=== PATIENT | male | born 1985 | race African-American/Black ===

== ENCOUNTER 2016-05-22 19:32 | Inpatient (IN) | payer SELFPAY ==
[2016-05-22] MEDS ORDERED: Ondansetron 4 MG/2 ML SDV IVPUSH ONE (22:01)
[2016-05-22] MEDS ORDERED: HYDROmorphone 1 MG/ML Syringe IVPUSH ONE (22:01)
--- NOTE | 2016-05-22 22:10 | EDM.PDOC ---
ED HPI LOWER BACK PAIN/INJURY - General Chief Complaint: Back Pain or Injury Stated Complaint: PT HAS LOWER BACK PAIN Time Seen by Provider: 05/22/16 22:00 Source of Information: Reports: Patient, RN - History of Present Illness INITIAL COMMENTS - FREE TEXT/NARRATIVE: He presents stating that for several days he's had pain "" he has had trouble with defecation isn't stating he cannot have a bowel movement. He states he cannot urinate. He states he feels dehydrated. - Related Data Allergies/ADRs: Allergies Allergy/AdvReac Type Severity Reaction Status Date / Time cat dander Allergy Hives Verified 05/22/16 20:01 Home Meds: Home Meds . [No Known Home Meds] 12/08/14 [History] . [No Known Home Meds] 05/15/15 [History] Past Medical History - Past Health History Medical/Surgical History: Denies Medical/Surgical History HEENT History: Reports: None Other Cardiovascular History: states had heart murmur in the past Respiratory History: Reports: None Gastrointestinal History: Reports: Gastritis, Hemorrhoids Genitourinary History: Reports: None Musculoskeletal History: Reports: None Neurological History: Reports: None Psychiatric History: Reports: None Endocrine/Metabolic History: Reports: None. Denies: Diabetes, type I, Diabetes , type II Hematologic History: Reports: None Immunologic History: Reports: None Oncologic (Cancer) History: Reports: None Dermatologic History: Reports: None - Infectious Disease History Infectious Disease History: Reports: None - Past Surgical History Cardiovascular Surgical History: Reports: None Respiratory Surgical History: Reports: None GI Surgical History: Reports: Other (see below) Other GI Surgeries/Procedures: biopsy from gastritis Social & Family History - Family History Family Medical History: Noncontributory Cardiac: Reports: Hypertension, [place] Neurological: Reports: CVA Endocrine/Metabolic: Reports: Diabetes, type II - Tobacco Use Smoking Status *Q: Current Some Day Smoker Years of Tobacco use: 1 Packs/Tins Daily: 5 Second Hand Smoke Exposure: Yes - Alcohol Use Days Per Week of Alcohol Use: 2 Alcohol Use Comment: He states he's had a lot of alcohol in the last 24 hours - Recreational Drug Use Recreational Drug Use: No Drug Use in Last 12 Months: Yes Recreational Drug Type: Reports: Marijuana/Hashish (weekends only, none in past 24 hours) Recreational Drug Use Frequency: Socially Recreational Drug Last Use: 2 days ago 12/19/14 ED ROS GENERAL - Review of Systems Review Of Systems: See Below Constitutional: Denies: fever, chills Respiratory: Denies: Wheezing, Cough, Sputum GI/Abdominal: Denies: Abdominal pain, Nausea, Vomiting ED EXAM,LOWER BACK PAIN/INJURY - Physical Exam Exam: See Below General Appearance: alert, moderate distress, other (He is sitting in a knee- chest position) Respiratory/Chest: no respiratory distress, no accessory muscle use GI/Abdominal: soft, non tender (Male) Exam: Other (He is sitting in the knee-chest position I palpated in the area of the coccyx he had exquisite pain) Comments: He has marked tenderness just posterior to the anal area Course - Vital Signs Last Recorded V/S: Last Vital Signs Temp 97.8 F 05/23/16 01:21 Pulse 82 05/23/16 01:21 Resp 18 05/23/16 01:21 BP 126/75 05/23/16 01:21 Pulse Ox 100 05/23/16 01:21 - Orders/Labs/Meds Orders: Active Orders 24 hr Category Date Time Status Patient Status [ADT] Routine ADT 05/23/16 02:19 Ordered Communication Order [RC] PER UNIT ROUTINE Care 05/22/16 22:02 Active Oxygen Therapy [RC] PRN Care 05/23/16 02:19 Ordered VTE/DVT Education [RC] PER UNIT ROUTINE Care 05/23/16 02:19 Ordered Vital Signs [RC] Q4H Care 05/23/16 02:19 Ordered Regular Diet [DIET] Diet 05/23/16 Breakfast Ordered Abdomen 1V Flat [CR] Stat Exams 05/22/16 22:02 Taken Pelvis w wo Cont [CT] Stat Exams 05/22/16 23:31 Taken BASIC METABOLIC PANEL,BMP [CHEM] AM Lab 05/24/16 05:11 Ordered BASIC METABOLIC PANEL,BMP [CHEM] AM Lab 05/25/16 05:11 Ordered CBC WITH AUTO DIFF [HEME] AM Lab 05/24/16 05:11 Ordered CBC WITH AUTO DIFF [HEME] AM Lab 05/25/16 05:11 Ordered CHLAMYDIA TRACHOMATIS/GC AMPLF Stat Lab 05/23/16 01:10 Received CULTURE BLOOD [BC] Stat Lab 05/23/16 01:35 Received CULTURE BLOOD [BC] Stat Lab 05/23/16 01:35 Results CULTURE URINE [RM] Stat Lab 05/23/16 01:24 Ordered Acetaminophen [Tylenol] Med 05/23/16 02:18 Ordered 650 mg PO Q4H PRN Bisacodyl [Dulcolax] Med 05/23/16 02:18 Ordered 5 mg PO DAILY PRN Doxycycline [Vibramycin] 100 mg Med 05/23/16 01:15 Active Sodium Chloride 0.9% [Normal Saline] 100 ml IV Q12H HYDROmorphone [Dilaudid] Med 05/22/16 23:32 Active 1 mg IVPUSH Q2H PRN HYDROmorphone [Dilaudid] Med 05/23/16 02:18 Ordered 1 mg IVPUSH Q2H PRN Ondansetron [Zofran] Med 05/23/16 02:18 Ordered 4 mg IVPUSH Q4H PRN Sodium Chloride 0.9% [Normal Saline] 1,000 ml Med 05/22/16 22:15 Active IV STAT Temazepam [Restoril] Med 05/23/16 02:18 Ordered 15 mg PO BEDTIME PRN cefTRIAXone [Rocephin] Med 05/23/16 01:15 Active 1,000 mg IVPUSH Q24H Blood Culture x2 Reflex Set [OM.PC] Stat Oth 05/23/16 00:51 Ordered Resuscitation Status Routine Resus Stat 05/23/16 02:18 Ordered Medication Orders Acetaminophen (Tylenol) 650 mg PO Q4H PRN PRN Reason: Pain (Mild 1-3)/fever Bisacodyl (Dulcolax) 5 mg PO DAILY PRN PRN Reason: Constipation Ceftriaxone Sodium (Rocephin) 1,000 mg IVPUSH Q24H LINDA Last Admin: 05/23/16 01:54 Dose: 1,000 mg Hydromorphone HCl (Dilaudid) 1 mg IVPUSH Q2H PRN PRN Reason: Pain Last Admin: 05/23/16 00:53 Dose: 1 mg Hydromorphone HCl (Dilaudid) 1 mg IVPUSH Q2H PRN PRN Reason: Pain (severe 7-10) Sodium Chloride (Normal Saline) 1,000 mls @ 250 mls/hr IV STAT LINDA Last Admin: 05/22/16 23:07 Dose: 250 mls/hr Doxycycline Hyclate 100 mg/ (Sodium Chloride) 100 mls @ 100 mls/hr IV Q12H LINDA Last Admin: 05/23/16 01:55 Dose: 100 mls/hr Ondansetron HCl (Zofran) 4 mg IVPUSH Q4H PRN PRN Reason: Nausea Temazepam (Restoril) 15 mg PO BEDTIME PRN PRN Reason: Sleep Labs: Laboratory Tests 05/22/16 05/22/16 05/23/16 Range/Units 22:26 22:26 01:10 WBC 11.66 H (4.0-11.0) K/uL RBC 4.56 (4.50-5.90) M/uL Hgb 12.9 L (13.0-17.0) g/dL Hct 38.6 (38.0-50.0) % MCV 84.6 (80.0-98.0) fL MCH 28.3 (27.0-32.0) pg MCHC 33.4 (31.0-37.0) g/dL RDW Std Deviation 44.8 (28.0-62.0) fl RDW Coeff of Meredith 14 (11.0-15.0) % Plt Count 219 (150-400) K/uL MPV 10.10 (7.40-12.00) fL Neut % (Auto) 75.6 (48.0-80.0) % Lymph % (Auto) 17.2 (16.0-40.0) % Stone % (Auto) 5.9 (0.0-15.0) % Eos % (Auto) 0.9 (0.0-7.0) % Baso % (Auto) 0.4 (0.0-1.5) % Neut # (Auto) 8.8 H (1.4-5.7) K/uL Lymph # (Auto) 2.0 (0.6-2.4) K/uL Stone # (Auto) 0.7 (0.0-0.8) K/uL Eos # (Auto) 0.1 (0.0-0.7) K/uL Baso # (Auto) 0.1 (0.0-0.1) K/uL Nucleated RBC % 0.0 /100WBC Nucleated RBCs # 0 K/uL Sodium 138 (136-146) mmol/L Potassium 4.1 (3.5-5.1) mmol/L Chloride 108 (98-110) mmol/L Carbon Dioxide 21 (21-31) mmol/L BUN 13 (6.0-23.0) mg/dL Creatinine 0.9 (0.6-1.5) mg/dL Est Cr Clr Drug Dosing TNP Estimated GFR (MDRD) > 60.0 ml/min Glucose 99 (60-110) mg/dL Calcium 9.1 (8.8-10.8) mg/dL Total Bilirubin 0.8 (0.1-1.5) mg/dL AST 15 (5-40) IU/L ALT 15 (8-54) IU/L Alkaline Phosphatase 51 (40-150) Total Protein 7.1 (6.0-8.0) g/dL Albumin 4.2 (3.5-5.0) g/dL Globulin 2.9 (2.0-3.5) g/dL Albumin/Globulin Ratio 1.5 (1.3-2.8) Amylase 62 (10-90) U/L Lipase 8 (7-80) U/L Urine Color YELLOW Urine Appearance CLEAR Urine pH 6.0 (5.0-8.0) Ur Specific [place] 1.020 (1.001-1.035) Urine Protein NEGATIVE (NEGATIVE) mg/dL Urine Glucose (UA) NEGATIVE (NEGATIVE) mg/dL Urine Ketones NEGATIVE (NEGATIVE) mg/dL Urine Occult Blood NEGATIVE (NEGATIVE) Urine Nitrite NEGATIVE (NEGATIVE) Urine Bilirubin NEGATIVE (NEGATIVE) Urine Urobilinogen 1.0 (<2.0) EU/dL Ur Leukocyte Esterase TRACE (NEGATIVE) Urine RBC 0-1 (0-2/HPF) Urine WBC 4-6 (0-5/HPF) Ur Epithelial Cells RARE (NONE-FEW) Urine Bacteria RARE (NEGATIVE) Urine Mucus LIGHT (NONE-MOD) Ethyl Alcohol < 10.0 mg/dL Meds: Medications Generic Name Dose Route Start Last Admin Trade Name Freq PRN Reason Stop Dose Admin Acetaminophen 650 mg 05/23/16 02:18 Tylenol PO Q4H PRN Pain (Mild 1-3)/fever Bisacodyl 5 mg 05/23/16 02:18 Dulcolax PO DAILY PRN Constipation Ceftriaxone Sodium 1,000 mg 05/23/16 01:15 05/23/16 01:54 Rocephin IVPUSH 1,000 mg Q24H LINDA Administration Hydromorphone HCl 1 mg 05/22/16 23:32 05/23/16 00:53 Dilaudid IVPUSH 1 mg Q2H PRN Administration Pain Hydromorphone HCl 1 mg 05/23/16 02:18 Dilaudid IVPUSH Q2H PRN Pain (severe 7-10) Sodium Chloride 1,000 mls @ 250 mls/hr 05/22/16 22:15 05/22/16 23:07 Normal Saline IV 250 mls/hr STAT LINDA Administration Doxycycline Hyclate 100 mg/ 100 mls @ 100 mls/hr 05/23/16 01:15 05/23/16 01: 55 Sodium Chloride IV 100 mls/hr Q12H LINDA Administration Ondansetron HCl 4 mg 05/23/16 02:18 Zofran IVPUSH Q4H PRN Nausea Temazepam 15 mg 05/23/16 02:18 Restoril PO BEDTIME PRN Sleep Discontinued Medications Generic Name Dose Route Start Last Admin Trade Name Freq PRN Reason Stop Dose Admin Hydromorphone HCl 1 mg 05/22/16 22:01 05/22/16 23:08 Dilaudid IVPUSH 05/22/16 22:02 1 mg ONETIME ONE Administration Piperacillin Sod/Tazobactam 50 mls @ 100 mls/hr 05/22/16 23:51 05/23/16 00:27 Sod 3.375 gm/ Sodium Chloride IV 05/23/16 00:20 100 mls/hr ONETIME ONE Administration Iopamidol 100 ml 05/23/16 00:18 05/23/16 00:18 Isovue-370 (76%) IVPUSH 05/23/16 00:19 100 ml ONETIME STA Administration Ondansetron HCl 4 mg 05/22/16 22:01 05/22/16 23:06 Zofran IVPUSH 05/22/16 22:02 4 mg ONETIME ONE Administration - Re-Assessments/Exams Free Text/Narrative Re-Assessment/Exam: 05/23/16 00:52 shaking chills noted. Betty Ceja MD Free Text/Narrative Re-Assessment/Exam: 05/23/16 02:12 patient unable to void. hopkins place with resultant 1600 ml urine out. Free Text/Narrative Re-Assessment/Exam: 05/23/16 02:23 Is resting peacefully now Departure - Departure Time of Disposition: 02:23 Disposition: Admitted As Inpatient 65 Clinical Impression: Acute prostatitis, Urinary retention Referrals: PCP,None [Primary Care Provider] - Forms: ED Department Discharge Additional Instructions: I spoke with Dr. Coles, hospitalist, who agrees to accept as an admission. Patient has been advised. - My Orders Last 24 Hours: My Active Orders 05/22/16 22:02 Communication Order [RC] PER UNIT ROUTINE Abdomen 1V Flat [CR] Stat 05/22/16 22:15 Sodium Chloride 0.9% [Normal Saline] 1,000 ml IV STAT 05/22/16 23:31 Pelvis w wo Cont [CT] Stat 05/22/16 23:32 HYDROmorphone [Dilaudid] 1 mg IVPUSH Q2H PRN 05/23/16 00:51 Blood Culture x2 Reflex Set [OM.PC] Stat 05/23/16 01:10 CHLAMYDIA TRACHOMATIS/GC AMPLF Stat 05/23/16 01:15 Doxycycline [Vibramycin] 100 mg Sodium Chloride 0.9% [Normal Saline] 100 ml IV Q12H cefTRIAXone [Rocephin] 1,000 mg IVPUSH Q24H 05/23/16 01:24 CULTURE URINE [RM] Stat 05/23/16 01:35 CULTURE BLOOD [BC] Stat CULTURE BLOOD [BC] Stat 05/23/16 02:18 Acetaminophen [Tylenol] 650 mg PO Q4H PRN Bisacodyl [Dulcolax] 5 mg PO DAILY PRN HYDROmorphone [Dilaudid] 1 mg IVPUSH Q2H PRN Ondansetron [Zofran] 4 mg IVPUSH Q4H PRN Temazepam [Restoril] 15 mg PO BEDTIME PRN Resuscitation Status Routine 05/23/16 02:19 Patient Status [ADT] Routine Oxygen Therapy [RC] PRN VTE/DVT Education [RC] PER UNIT ROUTINE Vital Signs [RC] Q4H 05/23/16 Breakfast Regular Diet [DIET] 05/24/16 05:11 BASIC METABOLIC PANEL,BMP [CHEM] AM CBC WITH AUTO DIFF [HEME] AM 05/25/16 05:11 BASIC METABOLIC PANEL,BMP [CHEM] AM CBC WITH AUTO DIFF [HEME] AM - Assessment/Plan Last 24 Hours: My Active Orders 05/22/16 22:02 Communication Order [RC] PER UNIT ROUTINE Abdomen 1V Flat [CR] Stat 05/22/16 22:15 Sodium Chloride 0.9% [Normal Saline] 1,000 ml IV STAT 05/22/16 23:31 Pelvis w wo Cont [CT] Stat 05/22/16 23:32 HYDROmorphone [Dilaudid] 1 mg IVPUSH Q2H PRN 05/23/16 00:51 Blood Culture x2 Reflex Set [OM.PC] Stat 05/23/16 01:10 CHLAMYDIA TRACHOMATIS/GC AMPLF Stat 05/23/16 01:15 Doxycycline [Vibramycin] 100 mg Sodium Chloride 0.9% [Normal Saline] 100 ml IV Q12H cefTRIAXone [Rocephin] 1,000 mg IVPUSH Q24H 05/23/16 01:24 CULTURE URINE [RM] Stat 05/23/16 01:35 CULTURE BLOOD [BC] Stat CULTURE BLOOD [BC] Stat 05/23/16 02:18 Acetaminophen [Tylenol] 650 mg PO Q4H PRN Bisacodyl [Dulcolax] 5 mg PO DAILY PRN HYDROmorphone [Dilaudid] 1 mg IVPUSH Q2H PRN Ondansetron [Zofran] 4 mg IVPUSH Q4H PRN Temazepam [Restoril] 15 mg PO BEDTIME PRN Resuscitation Status Routine 05/23/16 02:19 Patient Status [ADT] Routine Oxygen Therapy [RC] PRN VTE/DVT Education [RC] PER UNIT ROUTINE Vital Signs [RC] Q4H 05/23/16 Breakfast Regular Diet [DIET] 05/24/16 05:11 BASIC METABOLIC PANEL,BMP [CHEM] AM CBC WITH AUTO DIFF [HEME] AM 05/25/16 05:11 BASIC METABOLIC PANEL,BMP [CHEM] AM CBC WITH AUTO DIFF [HEME] AM
[2016-05-22] MEDS ORDERED: Sodium Chloride 0.9% 1,000 ML IV SCH (22:15)
[2016-05-22 23:05] LABS: CHLORIDE,CL 108 mmol/L (98-110); SODIUM,NA 138 mmol/L (136-146)
[2016-05-22] MEDS ORDERED: Piperacillin/Tazobactam 3.375 GM in Sodium Chloride 0.9% 50 ML IV ONE (23:51)
[2016-05-23] MEDS ORDERED: Iopamidol 755 Mg/ML 100 ML Bottle IVPUSH STA (00:18)
[2016-05-23] MEDS: HYDROmorphone 1 MG/ML Syringe IVPUSH PRN ×3 (00:53→08:08)
[2016-05-23] MEDS ORDERED: cefTRIAXone 1,000 MG VIAL IVPUSH SCH (01:15)
[2016-05-23] MEDS ORDERED: Doxycycline 100 MG in Sodium Chloride 0.9% 100 ML IV SCH ×2 (01:15→14:00)
[2016-05-23] MEDS ORDERED: Temazepam 15 MG Cap PO PRN (02:18)
[2016-05-23] MEDS ORDERED: HYDROmorphone 2 MG/ML Syringe IVPUSH PRN (02:18)
[2016-05-23] MEDS ORDERED: Ondansetron 4 MG/2 ML SDV IVPUSH PRN (02:18)
[2016-05-23] MEDS ORDERED: Acetaminophen 325 MG Tab PO PRN (02:18)
[2016-05-23] MEDS ORDERED: Sodium Chloride 0.9% 1,000 ML IV ONE (04:12)
[2016-05-23] MEDS: Sodium Chloride 0.9% 1,000 ML IV SCH ×4 (05:28→22:30)
[2016-05-23] MEDS: Bisacodyl 5 MG Tab PO PRN (07:58)
--- NOTE | 2016-05-23 08:24 | PCM.HP ---
H&P History of Present Illness - General Date of Service: 05/23/16 Admit Problem/Dx: Admission Diagnosis/Problem Admission Diagnosis/Problem Prostatitis Source of Information: Patient History Limitations: Reports: No limitations - History of Present Illness Initial Comments - Free Text/Narative: This 30 year old male with pmh of rectal bleeding with normal EGD and colonoscopy in 2014, heart murmur as child presented to the ED with 3 days of pain to his rectum and tailbone with the inability to void. He reports he had a bowel movement on Thursday which caused pain to his rectum, a sharp shooting pain which then ceased. He went to work and throughout the day the pain returned and progressively worsened. He denies any black or bloody BMS. He reports he did have a BM on Thursday but was unable to void because "it hurt too much". He denies any abdominal pain. He reports he has not had sexual intercourse or contact in 2 years. He denies any penile discharge or testicular pain. The pain continues and is located at his tailbone and rectum. No family history of testicular ca that he is aware of. He reports increased alcohol and marijuana use in the last 48 hour because the pain was so bad, this was his attempt to decrease the pain. In the ED WBC elevated at 11,660 Otherwise labs WNL. BC obtained. UA negative, UC obtained. He was treated with Rocephin and Doxycycline. CT of abd/pelvis revealed Inhomogenous prostate containing an ill define area of decreased attenuation in paulette left lobe, correlate for atypical prostatitis no significant periprostatic stranding noted. tailbone area Pain Score (Numeric/FACES): 7 - Related Data Allergies/Adverse Reactions: Allergies Allergy/AdvReac Type Severity Reaction Status Date / Time cat dander Allergy Hives Verified 05/22/16 20:01 Home Medications: Home Meds . [No Known Home Meds] 12/08/14 [History] . [No Known Home Meds] 05/15/15 [History] Past Medical History - Past Health History Medical/Surgical History: Denies Medical/Surgical History HEENT History: Reports: None Cardiovascular History: Reports: Other (see below) Other Cardiovascular History: Heart murmur as a child Respiratory History: Reports: None. Denies: Asthma Gastrointestinal History: Reports: Gastritis, Hemorrhoids Genitourinary History: Reports: None. Denies: Chronic renal insuffiency Musculoskeletal History: Reports: None Neurological History: Reports: None. Denies: CVA, TIA Psychiatric History: Reports: None. Denies: Anxiety, Depression Endocrine/Metabolic History: Reports: None. Denies: Diabetes, type II, Hypothyroidism, Obesity/BMI 30+ Hematologic History: Reports: None Immunologic History: Reports: None Oncologic (Cancer) History: Reports: None Dermatologic History: Reports: None - Infectious Disease History Infectious Disease History: Reports: None - Past Surgical History Cardiovascular Surgical History: Reports: None Respiratory Surgical History: Reports: None GI Surgical History: Reports: Other (see below) Other GI Surgeries/Procedures: biopsy from gastritis Social & Family History - Family History Family Medical History: Noncontributory Cardiac: Reports: Hypertension, [place] Neurological: Reports: CVA Endocrine/Metabolic: Reports: Diabetes, type II - Tobacco Use Smoking Status *Q: Current Some Day Smoker Years of Tobacco use: 1 Packs/Tins Daily: 5 Second Hand Smoke Exposure: Yes - Alcohol Use Days Per Week of Alcohol Use: 2 - Recreational Drug Use Recreational Drug Use: No Drug Use in Last 12 Months: Yes Recreational Drug Type: Reports: Marijuana/Hashish (weekends only, none in past 24 hours) Recreational Drug Use Frequency: Socially Recreational Drug Last Use: 2 days ago 12/19/14 - Sexual History Sexual History: Reports: Sexually active, Other (see below) (No sexual contact in over 2 years.) - Living Situation & Occupation Living situation: Reports: single Occupation: employed H&P Review of Systems - Review of Systems: Review Of Systems: See Below General: Reports: malaise. Denies: fever, chills HEENT: Reports: no symptoms Pulmonary: Reports: No Symptoms. Denies: Shortness of Breath, Wheezing, Cough Cardiovascular: Reports: no symptoms. Denies: chest pain, palpitations, edema Gastrointestinal: Reports: Other (rectal pain, noted in tailbone). Denies: Black stool, Bloody stool, Diarrhea, Nausea, Vomiting Genitourinary: Reports: retention. Denies: hematuria, penile discharge, flank pain Musculoskeletal: Reports: no symptoms Skin: Reports: no symptoms Psychiatric: Reports: no symptoms Neurological: Reports: No Symptoms Hematologic/Lymphatic: Reports: no symptoms Immunologic: Reports: no symptoms Exam - Exam Exam: See Below - Vital Signs Vital Signs: Last Vital Signs Temp 97.4 F 05/23/16 03:00 Pulse 62 05/23/16 03:00 Resp 18 05/23/16 03:00 BP 80/40 L 05/23/16 03:00 Pulse Ox 97 05/23/16 03:21 Weight: 61.4 kg - Exam Quality Assessment: urinary catheter, DVT prophylaxis. No: supplemental oxygen General: alert, oriented, cooperative HEENT: Conjunctiva clear, EACs clear, Mucosa moist & pink, Nares patent, Posterior pharynx clear Lungs: Clear to auscultation, Normal respiratory effort Cardiovascular: regular rate, regular rhythm, normal S1, normal S2. No: systolic murmur, diastolic murmur Abdomen: normal bowel sounds, soft. No: organomegaly, guarding, rebound, tenderness, splenomegaly (Male) Exam: Normal inspection, Urethral discharge (some white discharge noted post hopkins placement. ). No: Normal prostate (slight firmness felt to L) , Penile lesions, Rash, Scrotal swelling, Scrotum tenderness (L), Scrotum tenderness (R), Testicular mass, Testicular tenderness (L), Testicular tenderness (R) Rectal (Males) Exam: Normal rectal tone, Hemorrhoids (one external hemrrhoid noted, no bleeding ), Other (rectal pain noted, no abscess noted, no drainage. ) . No: Black stool, Bloody Stool, Fecal impaction, Mass, Rectal fissure Back Exam: normal inspection, full range of motion, NT Extremities: normal inspection, normal pulses Neuro Extensive - Mental Status: alert, oriented x3, normal mood/affect, normal cognition Neuro Extensive - Motor, Sensory, Reflexes: CN II-XII intact, normal gait, normal reflexes Psychiatric: alert, normal affect, normal mood - Patient Data Result Diagrams: 05/22/16 22:26 05/22/16 22:26 EKG INTERPRETATION Rhythm: NSR Rate (beats/min): 55 [place]: normal P-wave: present QRS: normal ST-T: elevated (early repolarization) *Q Meaningful Use (ADM) - VTE *Q VTE Criteria *Q: - VTE Risk Assess *Q Each Risk Factor Represents 1 Point: None Total Score 1 Point Risk Factors: 0 Each Risk Factor Represents 2 Points: None Total Score 2 Point Risk Factors: 0 Each Risk Factor Represents 3 Points: None Total Score 3 Point Risk Factors: 0 Each Risk Factor Represents 5 Points: None Total Score 5 Point Risk Factors: 0 Venous Thromboembolism Risk Factor Score *Q: 0 - Stroke *Q Stroke Criteria *Q: - AMI *Q AMI Criteria *Q: - Problem List (1) Acute prostatitis SNOMED Code(s): 81347538, 79850396 ICD Code: N41.0 - ACUTE PROSTATITIS Status: Acute Current Visit: Yes (2) Urinary retention SNOMED Code(s): 431660790 ICD Code: R33.9 - RETENTION OF URINE, UNSPECIFIED Status: Acute Current Visit: Yes (3) History of rectal bleeding SNOMED Code(s): 751274626 ICD Code: Z87.19 - PERSONAL HISTORY OF OTHER DISEASES OF THE DIGESTIVE SYSTEM Status: Chronic Current Visit: Yes Problem List Initiated/Reviewed/Updated: Yes Orders Last 24hrs: Active Orders 24 hr Category Date Time Status Telemetry Monitoring [Cardiac Monitoring] [RC] . Care 05/23/16 06:25 Active DIRECTED Acetaminophen/HYDROcodone [[place] 325-5 MG] Med 05/23/16 08:21 Ordered 1 - 2 tab PO Q4H PRN Morphine Med 05/23/16 08:23 Ordered 2 mg IVPUSH Q2H PRN Sodium Chloride 0.9% [Normal Saline] 1,000 ml Med 05/23/16 05:30 Active IV ASDIRECTED Medication Orders Acetaminophen (Tylenol) 650 mg PO Q4H PRN PRN Reason: Pain (Mild 1-3)/fever Hydrocodone Bitart/Acetaminophen ([place] 325-5 Mg) 1 - 2 tab PO Q4H PRN PRN Reason: Pain Bisacodyl (Dulcolax) 5 mg PO DAILY PRN PRN Reason: Constipation Last Admin: 05/23/16 07:58 Dose: 5 mg Ceftriaxone Sodium (Rocephin) 1,000 mg IVPUSH Q24H [facility] Last Admin: 05/23/16 01:54 Dose: 1,000 mg Doxycycline Hyclate 100 mg/ (Sodium Chloride) 100 mls @ 100 mls/hr IV Q12H [facility] Last Admin: 05/23/16 01:55 Dose: 100 mls/hr Sodium Chloride (Normal Saline) 1,000 mls @ 200 mls/hr IV ASDIRECTED [facility] Last Admin: 05/23/16 05:28 Dose: 100 mls/hr Morphine Sulfate (Morphine) 2 mg IVPUSH Q2H PRN PRN Reason: Pain Ondansetron HCl (Zofran) 4 mg IVPUSH Q4H PRN PRN Reason: Nausea Temazepam (Restoril) 15 mg PO BEDTIME PRN PRN Reason: Sleep Assessment/Plan Comment:: This 30 year old male admitted with urinary retention, rectal pain and acute prostatitis 1. Acute prostatitis: Will change antibiotic coverage to Levaquin IV. Consult Dr. Hodges, I appreciate his assistance with this patient. Will obtain PSA. Hopkins in place for retention. May consider Flomax will speak with Dr. Hodges. 2. Hypotension: Likely related to pain medication. Changed medication to [place] and Morphine. Discontinued Dilaudid. VTE: SCDs Dispo: 2-3 days pending improvement.
[2016-05-23] MEDS: Morphine 2 MG/ML Syringe IVPUSH PRN ×5 (09:30→21:58)
[2016-05-23] MEDS: Acetaminophen/HYDROcodone 325-5 MG Tab PO PRN ×4 (10:11→22:30)
[2016-05-23] MEDS: Levofloxacin/Dextrose 5%-Water 500 MG in Premix Bag 1 BAG IV SCH (12:47)
[2016-05-23] MEDS ORDERED: Morphine 2 MG/ML Syringe IVPUSH ONE (15:00)
[2016-05-23] MEDS: Tamsulosin 0.4 MG Cap.ER PO SCH ×2 (15:19→21:15)
--- NOTE | 2016-05-23 16:13 | CR ---
EXAM DATE: 05/23/16 PATIENT'S AGE: 30 Patient: HARSHA GELLER Facility: [place], [place] Site . Site : 1985 Study: XRay Abdomen [id number]/[id number] 10:40:19 PM Ordering Physician: Marcial Chavez Final Report: INDICATION: CONSTIPATION, LOWER BACK PAIN TECHNIQUE: Abdominal radiograph 2 views COMPARISON: None FINDINGS: Bowel: The bowel gas pattern is normal without evidence of bowel obstruction. Soft tissues: No evidence of pneumoperitoneum present. No sign of soft tissue mass seen. No suspicious calcifications noted. Bones: Unremarkable for age. IMPRESSIONS: Unremarkable radiographs of the abdomen. Dictated by: Favio Mccoy MD @ 05/22/2016 22:40:53 (Electronic Signature) Report Signed by Proxy and Original Signed Document filed in the Medical Record. MTDD
--- NOTE | 2016-05-23 16:22 | CT ---
EXAM DATE: 05/23/16 PATIENT'S AGE: 30 Patient: HARSHA GELLER Facility: [place], [place] Site . Site : 1985 Study: CT Pelvis W/ and W/O Cont [id number] 12:19:18 AM Ordering Physician: Marcial Chavez Final Report: Indication: Perirectal pain Technique: Pelvic CT without and with intravenous contrast. Comparison: A CT abdomen and pelvis dated 12/11/2014 Findings: No perirectal collection is seen. No discrete abnormalities are seen in the visualized portions of the gastrointestinal tract. Portions of a normal caliber appendix are seen without periappendiceal changes. The prostate is heterogeneous , demonstrating an ill-defined asymmetrical area of decreased attenuation in the left lobe. No significant periprosthetic stranding is seen. The seminal vesicles are symmetrical. No discrete bladder abnormalities seen. No abnormally enlarged pelvic lymph nodes are seen. There is no significant pelvic free fluid or free air. No suspicious or acute osseous abnormalities are seen. There is trace stranding adjacent to the coccyx, nonspecific. Impression: No perirectal collection. No significant abnormality seen in the visualized portions of the pelvic gastrointestinal tract. Inhomogeneous prostate containing an ill-defined area of decreased attenuation in the left lobe. Recommend further urological evaluation and correlate for atypical prostatitis, although no significant periprosthetic stranding is seen. Dictated by Germán Lorenzo MD @ 05/23/2016 12:31:44 AM Dictated by: Germán Lorenzo MD @ 05/23/2016 00:31:52 (Electronic Signature) Report Signed by Proxy and Original Signed Document filed in the Medical Record. [facility]
--- NOTE | 2016-05-23 19:12 | PCM.SN ---
[id number] examined the patient and looked at his CT study. He feels that this is most likely not a prostatitis as there is no UTI, patient is not tender over prostate, and white count is not elevated like it would be in a prostatitis. Patient is more tender near the coccyx. He feels that this may be a forming pilonidal cyst. He recommends keeping the patient on Levaquin. He will see the patient again tomorrow and if the patient is doing well he can be discharged with a prescription of levaquin for 14 days and follow-up. <Juan Luis Coles O - Last Filed: 05/24/16 08:26> - Free Text/Narrative Note: I was present with the resident during the history and exam. I discussed the case with the resident and agree with the findings and plan as documented in the resident's note
[2016-05-24] MEDS ORDERED: cefTRIAXone 1 GM in Premix Bag 1 BAG IV SCH (01:00)
[2016-05-24] MEDS: Sodium Chloride 0.9% 1,000 ML IV SCH ×3 (03:27→15:11)
[2016-05-24] MEDS: Morphine 2 MG/ML Syringe IVPUSH PRN ×2 (03:35→10:29)
[2016-05-24 06:35] LABS: CHLORIDE,CL 110 mmol/L (98-110); SODIUM,NA 138 mmol/L (136-146)
[2016-05-24] MEDS: Acetaminophen/HYDROcodone 325-5 MG Tab PO PRN (08:38)
--- NOTE | 2016-05-24 09:02 | PCM.PN ---
- General Info Date of Service: 05/24/16 Subjective Update: pain ameliorated to degree that pt able to move but with considerable discomfort. Prostae not the culprit per urology Functional Status: Reports: pain controlled - Review of Systems General: Reports: No Symptoms HEENT: Reports: no symptoms Pulmonary: Reports: no symptoms Cardiovascular: Reports: No Symptoms Gastrointestinal: Reports: No symptoms Genitourinary: Reports: no symptoms Musculoskeletal: Reports: no symptoms Skin: Reports: no symptoms Neurological: Reports: No Symptoms Psychiatric: Reports: no symptoms - Patient Data Vitals - most recent: Last Vital Signs Temp 36.9 C 05/24/16 08:00 Pulse 56 L 05/24/16 08:00 Resp 16 05/24/16 08:00 BP 116/69 05/24/16 08:00 Pulse Ox 100 05/24/16 08:00 Weight - most recent: 61.4 kg I&O - last 24 hours: Intake & Output 05/23/16 05/24/16 05/24/16 22:59 06:59 14:59 Intake Total 3272 1500 1000 Output Total 1300 2200 Balance 1972 -700 1000 Lab Results last 24 hrs: Laboratory Results - last 24 hr 05/23/16 05/23/16 05/24/16 Range/Units 08:58 08:58 05:50 WBC 9.10 (4.0-11.0) K/uL RBC 4.08 L (4.50-5.90) M/uL Hgb 11.3 L (13.0-17.0) g/dL Hct 34.7 L (38.0-50.0) % MCV 85.0 (80.0-98.0) fL MCH 27.7 (27.0-32.0) pg MCHC 32.6 (31.0-37.0) g/dL RDW Std Deviation 44.4 (28.0-62.0) fl RDW Coeff of Meredith 14 (11.0-15.0) % Plt Count 220 (150-400) K/uL MPV 9.90 (7.40-12.00) fL Neut % (Auto) 58.5 (48.0-80.0) % Lymph % (Auto) 28.4 (16.0-40.0) % Nuckolls % (Auto) 9.9 (0.0-15.0) % Eos % (Auto) 2.7 (0.0-7.0) % Baso % (Auto) 0.5 (0.0-1.5) % Neut # (Auto) 5.3 (1.4-5.7) K/uL Lymph # (Auto) 2.6 H (0.6-2.4) K/uL Nuckolls # (Auto) 0.9 H (0.0-0.8) K/uL Eos # (Auto) 0.3 (0.0-0.7) K/uL Baso # (Auto) 0.1 (0.0-0.1) K/uL Nucleated RBC % 0.0 /100WBC Nucleated RBCs # 0 K/uL Sodium (136-146) mmol/L Potassium (3.5-5.1) mmol/L Chloride (98-110) mmol/L Carbon Dioxide (21-31) mmol/L BUN (6.0-23.0) mg/dL Creatinine (0.6-1.5) mg/dL Est Cr Clr Drug Dosing mL/min Estimated GFR (MDRD) ml/min Glucose (60-110) mg/dL Calcium (8.8-10.8) mg/dL Troponin I < 0.10 (0.0-0.29) NG/ML Prostate Specific Ag 0.78 (0.0-3.9) ng/mL 05/24/16 Range/Units 05:50 WBC (4.0-11.0) K/uL RBC (4.50-5.90) M/uL Hgb (13.0-17.0) g/dL Hct (38.0-50.0) % MCV (80.0-98.0) fL MCH (27.0-32.0) pg MCHC (31.0-37.0) g/dL RDW Std Deviation (28.0-62.0) fl RDW Coeff of Meredith (11.0-15.0) % Plt Count (150-400) K/uL MPV (7.40-12.00) fL Neut % (Auto) (48.0-80.0) % Lymph % (Auto) (16.0-40.0) % Nuckolls % (Auto) (0.0-15.0) % Eos % (Auto) (0.0-7.0) % Baso % (Auto) (0.0-1.5) % Neut # (Auto) (1.4-5.7) K/uL Lymph # (Auto) (0.6-2.4) K/uL Nuckolls # (Auto) (0.0-0.8) K/uL Eos # (Auto) (0.0-0.7) K/uL Baso # (Auto) (0.0-0.1) K/uL Nucleated RBC % /100WBC Nucleated RBCs # K/uL Sodium 138 (136-146) mmol/L Potassium 4.1 (3.5-5.1) mmol/L Chloride 110 (98-110) mmol/L Carbon Dioxide 22 (21-31) mmol/L BUN 7 (6.0-23.0) mg/dL Creatinine 0.8 (0.6-1.5) mg/dL Est Cr Clr Drug Dosing 116.19 mL/min Estimated GFR (MDRD) > 60.0 ml/min Glucose 84 (60-110) mg/dL Calcium 8.2 L (8.8-10.8) mg/dL Troponin I (0.0-0.29) NG/ML Prostate Specific Ag (0.0-3.9) ng/mL Med Orders - Current: Current Medications Acetaminophen (Tylenol) 650 mg PO Q4H PRN PRN Reason: Pain (Mild 1-3)/fever Hydrocodone Bitart/Acetaminophen ([place] 325-5 Mg) 1 - 2 tab PO Q4H PRN PRN Reason: Pain Last Admin: 05/24/16 08:38 Dose: 2 tab Bisacodyl (Dulcolax) 5 mg PO DAILY PRN PRN Reason: Constipation Last Admin: 05/23/16 07:58 Dose: 5 mg Sodium Chloride (Normal Saline) 1,000 mls @ 200 mls/hr IV ASDIRECTED [facility] Last Admin: 05/24/16 08:40 Dose: 100 mls/hr Levofloxacin/Dextrose 500 mg/ (Premix) 100 mls @ 100 mls/hr IV Q24H [facility] Last Admin: 05/23/16 12:47 Dose: 100 mls/hr Morphine Sulfate (Morphine) 2 mg IVPUSH Q2H PRN PRN Reason: Pain Last Admin: 05/24/16 03:35 Dose: 2 mg Ondansetron HCl (Zofran) 4 mg IVPUSH Q4H PRN PRN Reason: Nausea Tamsulosin HCl (Flomax) 0.4 mg PO BEDTIME [facility] Last Admin: 05/23/16 21:15 Dose: 0.4 mg Temazepam (Restoril) 15 mg PO BEDTIME PRN PRN Reason: Sleep Discontinued Medications Ceftriaxone Sodium (Rocephin) 1,000 mg IVPUSH Q24H [facility] Last Admin: 05/23/16 01:54 Dose: 1,000 mg Hydromorphone HCl (Dilaudid) 1 mg IVPUSH ONETIME ONE Stop: 05/22/16 22:02 Last Admin: 05/22/16 23:08 Dose: 1 mg Hydromorphone HCl (Dilaudid) 1 mg IVPUSH Q2H PRN PRN Reason: Pain Last Admin: 05/23/16 08:08 Dose: 1 mg Hydromorphone HCl (Dilaudid) 1 mg IVPUSH Q2H PRN PRN Reason: Pain (severe 7-10) Sodium Chloride (Normal Saline) 1,000 mls @ 250 mls/hr IV STAT [facility] Last Admin: 05/22/16 23:07 Dose: 250 mls/hr Piperacillin Sod/Tazobactam (Sod 3.375 gm/ Sodium Chloride) 50 mls @ 100 mls/ hr IV ONETIME ONE Stop: 05/23/16 00:20 Last Admin: 05/23/16 00:27 Dose: 100 mls/hr Doxycycline Hyclate 100 mg/ (Sodium Chloride) 100 mls @ 100 mls/hr IV Q12H [facility] Last Admin: 05/23/16 01:55 Dose: 100 mls/hr Sodium Chloride (Normal Saline) 1,000 mls @ 999 mls/hr IV .Bolus ONE Stop: 05/23/16 05:12 Last Admin: 05/23/16 04:23 Dose: 999 mls/hr Doxycycline Hyclate 100 mg/ (Sodium Chloride) 100 mls @ 100 mls/hr IV Q12H [facility] Ceftriaxone Sodium/Dextrose 1 (gm/ Premix) 50 mls @ 100 mls/hr IV Q24H [facility] Iopamidol (Isovue-370 (76%)) 100 ml IVPUSH ONETIME STA Stop: 05/23/16 00:19 Last Admin: 05/23/16 00:18 Dose: 100 ml Morphine Sulfate (Morphine) 2 mg IVPUSH ONETIME ONE Stop: 05/23/16 15:01 Last Admin: 05/23/16 15:19 Dose: 2 mg Ondansetron HCl (Zofran) 4 mg IVPUSH ONETIME ONE Stop: 05/22/16 22:02 Last Admin: 05/22/16 23:06 Dose: 4 mg - Exam General: alert, no acute distress HEENT: Pupils equal, Pupils reactive, EOMI, Mucous membr. moist/pink Neck: supple Lungs: Clear to auscultation, Normal respiratory effort Cardiovascular: Regular Rate, Regular Rhythm Abdomen: other (not examined) (Male) Exam: Deferred, Other (small skin tag at anus,m no sign of inflammation) Back Exam: other (marked tenderness of coccyx/base of spine) - Problem List Review Problem List Initiated/Reviewed/Updated: Yes - My Orders Last 24 Hours: coccydynia - Plan Plan:: This 30 year old male admitted with urinary retention, rectal pain and acute prostatitis 1. Acute prostatitis: Will change antibiotic coverage to Levaquin IV. Consult Dr. Hodges, I appreciate his assistance with this patient. Will obtain PSA. Enamor[place] in place for retention. May consider Flomax will speak with Dr. Hodges. 2. Hypotension: Likely related to pain medication. Changed medication to [place] and Morphine. Discontinued Dilaudid. VTE: SCDs Dispo: 2-3 days pending improvement. Continue MS and [place] as needed, Add Celebrex for anti-iinflammatory effect. Consider local injection by anaesthesia
[2016-05-24] MEDS ORDERED: Celecoxib 100 MG Cap PO SCH (10:30)
[2016-05-24] MEDS: Levofloxacin/Dextrose 5%-Water 500 MG in Premix Bag 1 BAG IV SCH (11:38)
[2016-05-24] MEDS: Bisacodyl 5 MG Tab PO PRN (13:00)
[2016-05-24 13:42] VITALS: BP 125/89
--- NOTE | 2016-05-24 16:32 | CONS ---
DATE OF CONSULTATION: DATE OF : 1985 PRIMARY CARE PHYSICIAN: None PCP HISTORY OF PRESENT ILLNESS: A 30-year-old, he was admitted to the hospital through the emergency room with what sounds like sudden onset perirectal pain. His evaluation included a CT scan that was read as showing abnormal prostate. His white blood count was normal. He was afebrile. His urinalysis was negative. He was unable to void, so he had a catheter put in, and he was admitted to the hospital. While here, he stayed on IV antibiotics. He was getting Levaquin. One day later, his pain is significantly improved. By day two, his pain is further improved. The catheter was taken out, and he was able to void. PHYSICAL EXAMINATION: GENERAL APPEARANCE: Normal. ABDOMEN: Negative. RECTAL: Showed a boggy prostate on one side, but there was not necessarily tender. The rectal exam is otherwise negative. The patient stated that the pain is actually outside and further examination it appears that the point of tenderness is where I would expect a pilonidal cyst infection; however, I could not identify any cyst in the patient denies having trauma. So with all that the way it is, I suspect the diagnosis that fits the best would be an infection in a pilonidal sinus. He is improving. He will be sent home on Levaquin. He is off work for another week. If he is not completely better, then needs to see a general surgeon. He was also instructed to get a sitz bath and soak his bottom in hot water twice a day for 15-20 minutes each time. JOSSUE BAIRES /[id number]
[2016-05-24] MEDS ORDERED: Polyethylene Glycol 3350 Powder 17 GM Packet PO SCH (17:00)
== END 2016-05-24 18:10 | disposition home or self-care (01) | DRG 728 ==
LOC: MW.ED 19:32 → MW.MS 05-23 02:19
PROVIDERS: ADMIT Family Medicine; ATTEND Internal Medicine
DX: N41.0 Acute prostatitis (principal); R33.9 Retention of urine, unspecified; K62.89 Other specified diseases of anus and rectum; R01.1 Cardiac murmur, unspecified; L05.92 Pilonidal sinus without abscess; I95.2 Hypotension due to drugs; T40.2X5A Adverse effect of other opioids, initial encounter; Y92.230 Patient room in hospital as the place of occurrence of the external cause; Z87.19 Personal history of other diseases of the digestive system; F17.200 Nicotine dependence, unspecified, uncomplicated
CPT/HCPCS: 36415; 72194; 72194-26; 74000; 74000-26; 80048; 80053; 81001; 82150; 83690; 84153; 84484; 85025; 87040; 87086; 87491; 87591; 93005; 96365; 96367; 96375; 99283; 99285-25; A9270-GY; G0480; J0696; J1170; J1956; J2270; J2405; J2543; J7030; J7040; J7050; Q9967

== ENCOUNTER 2016-12-19 15:36 | Emergency (ER) | payer SELFPAY ==
[2016-12-19 15:53] VITALS: BP 142/73
--- NOTE | 2016-12-19 16:10 | EDM.PDOC ---
ED HPI GENERAL MEDICAL PROBLEM - General Chief Complaint: Upper Extremity Injury/Pain Stated Complaint: RT HAND PAIN Time Seen by Provider: 12/19/16 16:04 Source of Information: Reports: Patient History Limitations: Reports: No Limitations - History of Present Illness INITIAL COMMENTS - FREE TEXT/NARRATIVE: History of present illness: [31-year-old male presenting with acute complaints of right-sided hand pain. Patient says he woke up from a evening of intoxication when he notices hand was significantly swollen and continues to be painful and he is uncertain if there had been a traumatic injury or what could be causing the edema] Review of systems: As per history of present illness and below otherwise all systems reviewed and negative. Past medical history: As per history of present illness and as reviewed below otherwise noncontributory. Surgical history: As per history of present illness and as reviewed below otherwise noncontributory. Social history: No reported history of drug or alcohol abuse. Family history: As per history of present illness and as reviewed below otherwise noncontributory. Physical exam: HEENT: Atraumatic, normocephalic, pupils reactive, negative for conjunctival pallor or scleral icterus, mucous membranes moist, throat clear, neck supple, nontender, trachea midline. Lungs: Clear to auscultation, breath sounds equal bilaterally, chest nontender. Heart: S1S2, regular, negative for clicks, rubs, or JVD. Abdomen: Soft, nondistended, nontender. Negative for masses or hepatosplenomegaly. Negative for costovertebral tenderness. Pelvis: Stable nontender. Genitourinary: Deferred. Rectal: Deferred. Extremities: Right hand with mild dorsal swelling, negative for cords or calf pain. Neurovascular unremarkable. Neuro: Awake, alert, oriented. Cranial nerves II through XII unremarkable. Cerebellum unremarkable. Motor and sensory unremarkable throughout. Exam nonfocal. Diagnostics: [X-ray right hand] Therapeutics: [] Impression: [#1 right hand pain] Plan: [[id number] meds follow-up with PCP] Definitive disposition and diagnosis as appropriate pending reevaluation and review of above. Right Hand Pain Score (Numeric/FACES): 2 - Related Data Allergies Allergy/AdvReac Type Severity Reaction Status Date / Time cat dander Allergy Hives Verified 12/19/16 15:51 Home Meds: Home Meds . [No Known Home Meds] 12/08/14 [History] . [No Known Home Meds] 05/15/15 [History] Past Medical History - Past Health History Medical/Surgical History: Denies Medical/Surgical History HEENT History: Reports: None Cardiovascular History: Reports: None Other Cardiovascular History: Heart murmur as a child Respiratory History: Reports: Bronchitis, Recurrent Gastrointestinal History: Reports: None Genitourinary History: Reports: None Musculoskeletal History: Reports: None Neurological History: Reports: None Psychiatric History: Reports: None Endocrine/Metabolic History: Reports: None Hematologic History: Reports: None Immunologic History: Reports: None Oncologic (Cancer) History: Reports: None Dermatologic History: Reports: None - Infectious Disease History Infectious Disease History: Reports: Chicken Pox - Past Surgical History Head Surgeries/Procedures: Reports: None HEENT Surgical History: Reports: None Cardiovascular Surgical History: Reports: None Respiratory Surgical History: Reports: None GI Surgical History: Reports: Other (See Below) Male Surgical History: Reports: None Endocrine Surgical History: Reports: None Neurological Surgical History: Reports: None Musculoskeletal Surgical History: Reports: None Oncologic Surgical History: Reports: None Dermatological Surgical History: Reports: None Social & Family History - Family History Family Medical History: Noncontributory Cardiac: Reports: Hypertension, CT Neurological: Reports: CVA Endocrine/Metabolic: Reports: Diabetes, type II - Tobacco Use Smoking Status *Q: Current Every Day Smoker Years of Tobacco use: 10 Packs/Tins Daily: 0.5 Second Hand Smoke Exposure: Yes - Caffeine Use Caffeine Use: Reports: Coffee, Energy Drinks, Soda, Tea - Alcohol Use Days Per Week of Alcohol Use: 2 - Recreational Drug Use Recreational Drug Use: No Drug Use in Last 12 Months: Yes Recreational Drug Type: Reports: Marijuana/Hashish (weekends only, none in past 24 hours) Recreational Drug Use Frequency: Socially Recreational Drug Last Use: 2 days ago 12/19/14 - Sexual History Sexual History: Reports: Sexually Active, Other (See Below) - Living Situation & Occupation Living situation: Reports: Single Occupation: Employed Review of Systems - Review of Systems Review Of Systems: See Below (History of present illness) ED EXAM, GENERAL - Physical Exam Exam: See Below (History of present illness) Course - Vital Signs Last Recorded V/S: Last Vital Signs Temp 36.9 C 10/27/17 15:51 Pulse 90 12/19/16 15:51 Resp 18 12/19/16 15:51 BP 142/73 H 12/19/16 15:51 Pulse Ox 99 12/19/16 15:51 Departure - Departure Time of Disposition: 16:55 Disposition: Home, Self-Care 01 Condition: Good Clinical Impression: Right hand pain - Discharge Information Referrals: PCP,None [Primary Care Provider] - Additional Instructions: The following information is given to patients seen in the emergency department who are being discharged to home. This information is to outline your options for follow-up care. We provide all patients seen in our emergency department with a follow-up referral. The need for follow-up, as well as the timing and circumstances, are variable depending upon the specifics of your emergency department visit. If you don't have a primary care physician on staff, we will provide you with a referral. We always advise you to contact your personal physician following an emergency department visit to inform them of the circumstance of the visit and for follow-up with them and/or the need for any referrals to a consulting specialist. The emergency department will also refer you to a specialist when appropriate. This referral assures that you have the opportunity for follow-up care with a specialist. All of these measure are taken in an effort to provide you with optimal care, which includes your follow-up. Under all circumstances we always encourage you to contact your private physician who remains a resource for coordinating your care. When calling for follow-up care, please make the office aware that this follow-up is from your recent emergency room visit. If for any reason you are refused follow-up, please contact the [facility] Emergency Department at and asked to speak to the emergency department charge nurse. He may take [id number] pain medicine such as ibuprofen 800 mg every 8 hours as needed for pain You may alternate ice and heat no longer than 20 minutes at a time and elevation Follow-up with PCP in 3-5 days Return to ED as needed as discussed [facility] [address] [place] [id number]
--- NOTE | 2016-12-22 11:01 | CR ---
EXAM DATE: 12/19/16 PATIENT'S AGE: 31 Patient: HARSHA GELLER Facility: [place], [place] Site . Site : 1985 Study: XRay Extremity hand [id number] 4:27:01 PM Ordering Physician: Doctor [place] Final Report: INDICATION: Hand pain TECHNIQUE: Hand radiograph 3 views COMPARISON: None FINDINGS: Bones: Alignment is normal. No acute fractures or aggressive osseous lesions seen. Likely old fracture deformity involving the right 5th metacarpal. Joint spaces: The carpal and metacarpal-phalangeal joints are unremarkable in appearance. The interphalangeal joints are normal in appearance. Soft tissues: Unremarkable. No radiopaque foreign bodies are noted. IMPRESSION: 1. No acute osseous injuries are identified. Dictated by Scott Galarza MD @ 12/19/2016 4:38:05 PM Dictated by: Scott Galarza MD @ 12/19/2016 16:38:09 (Electronic Signature) Report Signed by Proxy. VIRI
== END 2016-12-19 17:05 | disposition home or self-care (01) ==
LOC: MW.ED 15:36
DX: M79.641 Pain in right hand (principal); F17.210 Nicotine dependence, cigarettes, uncomplicated
CPT/HCPCS: 73120-26-RT; 73120-RT; 99282; 99283

== ENCOUNTER 2016-12-21 09:04 | Emergency (ER) | payer SELFPAY ==
[2016-12-21] MEDS ORDERED: Sodium Chloride 0.9% 1,000 ML IV ONE (09:24)
--- NOTE | 2016-12-21 09:50 | EDM.PDOC ---
ED HPI GENERAL MEDICAL PROBLEM - General Chief Complaint: Abdominal Pain Stated Complaint: ABDOMINAL PAIN Time Seen by Provider: 12/21/16 09:34 - History of Present Illness INITIAL COMMENTS - FREE TEXT/NARRATIVE: HISTORY AND PHYSICAL: History of present illness: Patient 31-year-old black male who presents with concern of abdominal pain patient states he's had a history of gastritis and peptic ulcer disease although is not on a proton pump inhibitor daily he states he was told to take it when necessary he does acknowledge alcohol he denies drug abuse he's had no melena or hematochezia reported no chest pain or shortness of breath and denies trauma Review of systems: As per history of present illness and below otherwise all systems reviewed and negative. Past medical history: As per history of present illness and as reviewed below otherwise noncontributory. Surgical history: As per history of present illness and as reviewed below otherwise noncontributory. Social history: No reported history of drug or alcohol abuse. Family history: As per history of present illness and as reviewed below otherwise noncontributory. Physical exam: HEENT: Atraumatic, normocephalic, pupils reactive, negative for conjunctival pallor or scleral icterus, mucous membranes moist, throat clear, neck supple, nontender, trachea midline. Lungs: Clear to auscultation, breath sounds equal bilaterally, chest nontender. Heart: S1S2, regular, negative for clicks, rubs, or JVD. Abdomen: Soft, nondistended, no localized tenderness. Negative for masses or hepatosplenomegaly. Negative for costovertebral tenderness. Pelvis: Stable nontender. Genitourinary: Deferred. Rectal: Deferred. Extremities: Atraumatic, negative for cords or calf pain. Neurovascular unremarkable. Neuro: Awake, alert, oriented. Cranial nerves II through XII unremarkable. Cerebellum unremarkable. Motor and sensory unremarkable throughout. Exam nonfocal. Diagnostics: CBC CMP PT/INR lipase UA urine drug screen CT abdomen and pelvis Therapeutics: Normal saline 1 L bolus Impression: #1 abdominal pain Definitive disposition and diagnosis as appropriate pending reevaluation and review of above. Abdomen Pain Score (Numeric/FACES): 10 - Related Data Allergies Allergy/AdvReac Type Severity Reaction Status Date / Time cat dander Allergy Hives Verified 12/19/16 15:51 Home Meds: Home Meds . [No Known Home Meds] 12/08/14 [History] Past Medical History - Past Health History Medical/Surgical History: Denies Medical/Surgical History HEENT History: Reports: None Cardiovascular History: Reports: None Other Cardiovascular History: Heart murmur as a child Respiratory History: Reports: Bronchitis, Recurrent Gastrointestinal History: Reports: None Genitourinary History: Reports: None Musculoskeletal History: Reports: None Neurological History: Reports: None Psychiatric History: Reports: None Endocrine/Metabolic History: Reports: None Hematologic History: Reports: None Immunologic History: Reports: None Oncologic (Cancer) History: Reports: None Dermatologic History: Reports: None - Infectious Disease History Infectious Disease History: Reports: Chicken Pox - Past Surgical History Head Surgeries/Procedures: Reports: None HEENT Surgical History: Reports: None Cardiovascular Surgical History: Reports: None Respiratory Surgical History: Reports: None GI Surgical History: Reports: Other (See Below) Male Surgical History: Reports: None Endocrine Surgical History: Reports: None Neurological Surgical History: Reports: None Musculoskeletal Surgical History: Reports: None Oncologic Surgical History: Reports: None Dermatological Surgical History: Reports: None Social & Family History - Family History Family Medical History: Noncontributory Cardiac: Reports: Hypertension, [place] Neurological: Reports: CVA Endocrine/Metabolic: Reports: Diabetes, type II - Tobacco Use Smoking Status *Q: Current Every Day Smoker Years of Tobacco use: 10 Packs/Tins Daily: 1 Second Hand Smoke Exposure: No - Caffeine Use Caffeine Use: Reports: Coffee, Energy Drinks, Soda, Tea - Alcohol Use Days Per Week of Alcohol Use: 2 Number of Drinks Per Day: 7 Total Drinks Per Week: 14 Date of Last Drink: 12/21/16 Time of Last Drink: 00:01 - Recreational Drug Use Recreational Drug Use: No Drug Use in Last 12 Months: Yes Recreational Drug Type: Reports: Marijuana/Hashish (weekends only, none in past 24 hours) Recreational Drug Use Frequency: Socially Recreational Drug Last Use: 2 days ago 12/19/14 - Sexual History Sexual History: Reports: Sexually Active, Other (See Below) - Living Situation & Occupation Living situation: Reports: Single Occupation: Employed ED ROS GENERAL - Review of Systems Review Of Systems: ROS reveals no pertinent complaints other than HPI. ED EXAM, GENERAL - Physical Exam Exam: See Below (See dictation) Course - Vital Signs Last Recorded V/S: Last Vital Signs Temp 36.2 C 12/21/16 09:14 Pulse 72 12/21/16 09:14 Resp 24 H 12/21/16 09:14 BP 121/77 12/21/16 09:14 Pulse Ox 100 12/21/16 09:14 - Orders/Labs/Meds Orders: Active Orders 24 hr Category Date Time Status Abdomen Pelvis w Cont [CT] Stat Exams 12/21/16 09:24 Taken Labs: Laboratory Tests 12/21/16 12/21/16 12/21/16 Range/Units 09:26 09:26 10:34 WBC 9.28 (4.0-11.0) K/uL RBC 4.57 (4.50-5.90) M/uL Hgb 13.7 (13.0-17.0) g/dL Hct 40.2 (38.0-50.0) % MCV 88.0 (80.0-98.0) fL MCH 30.0 (27.0-32.0) pg MCHC 34.1 (31.0-37.0) g/dL RDW Std Deviation 49.9 (28.0-62.0) fl RDW Coeff of Meredith 16 H (11.0-15.0) % Plt Count 311 (150-400) K/uL MPV 9.60 (7.40-12.00) fL Neut % (Auto) 52.7 (48.0-80.0) % Lymph % (Auto) 33.0 (16.0-40.0) % [place] % (Auto) 7.4 (0.0-15.0) % Eos % (Auto) 5.6 (0.0-7.0) % Baso % (Auto) 1.3 (0.0-1.5) % Neut # (Auto) 4.9 (1.4-5.7) K/uL Lymph # (Auto) 3.1 H (0.6-2.4) K/uL [facility] # (Auto) 0.7 (0.0-0.8) K/uL Eos # (Auto) 0.5 (0.0-0.7) K/uL Baso # (Auto) 0.1 (0.0-0.1) K/uL Nucleated RBC % 0.0 /100WBC Nucleated RBCs # 0 K/uL Sodium 142 (136-146) mmol/L Potassium 3.9 (3.5-5.1) mmol/L Chloride 111 H (98-110) mmol/L Carbon Dioxide 22 (21-31) mmol/L BUN 9 (6.0-23.0) mg/dL Creatinine 0.8 (0.6-1.5) mg/dL Est Cr Clr Drug Dosing 114.82 mL/min Estimated GFR (MDRD) > 60.0 ml/min Glucose 86 (60-110) mg/dL Calcium 9.3 (8.8-10.8) mg/dL Total Bilirubin 0.3 (0.1-1.5) mg/dL AST 17 (5-40) IU/L ALT 18 (8-54) IU/L Alkaline Phosphatase 70 (40-150) Total Protein 7.4 (6.0-8.0) g/dL Albumin 4.5 (3.5-5.0) g/dL Globulin 2.9 (2.0-3.5) g/dL Albumin/Globulin Ratio 1.6 (1.3-2.8) Lipase 9 (7-80) U/L Urine Color Urine Appearance Urine pH (5.0-8.0) Ur Specific [place] (1.001-1.035) Urine Protein (NEGATIVE) mg/dL Urine Glucose (UA) (NEGATIVE) mg/dL Urine Ketones (NEGATIVE) mg/dL Urine Occult Blood (NEGATIVE) Urine Nitrite (NEGATIVE) Urine Bilirubin (NEGATIVE) Urine Urobilinogen (<2.0) EU/dL Ur Leukocyte Esterase (NEGATIVE) Urine RBC (0-2/HPF) Urine WBC (0-5/HPF) Ur Epithelial Cells (NONE-FEW) Urine Bacteria (NEGATIVE) Urine Opiates Screen NEGATIVE (NEGATIVE) Ur Oxycodone Screen NEGATIVE (NEGATIVE) Urine Methadone Screen NEGATIVE (NEGATIVE) Ur Barbiturates Screen NEGATIVE (NEGATIVE) Ur Phencyclidine Scrn NEGATIVE (NEGATIVE) Ur Amphetamine Screen NEGATIVE (NEGATIVE) U Methamphetamines Scrn NEGATIVE (NEGATIVE) U Benzodiazepines Scrn NEGATIVE (NEGATIVE) U Cocaine Metab Screen NEGATIVE (NEGATIVE) U Marijuana (THC) Screen NEGATIVE (NEGATIVE) 12/21/16 Range/Units 10:34 WBC (4.0-11.0) K/uL RBC (4.50-5.90) M/uL Hgb (13.0-17.0) g/dL Hct (38.0-50.0) % MCV (80.0-98.0) fL MCH (27.0-32.0) pg MCHC (31.0-37.0) g/dL RDW Std Deviation (28.0-62.0) fl RDW Coeff of Meredith (11.0-15.0) % Plt Count (150-400) K/uL MPV (7.40-12.00) fL Neut % (Auto) (48.0-80.0) % Lymph % (Auto) (16.0-40.0) % [place] % (Auto) (0.0-15.0) % Eos % (Auto) (0.0-7.0) % Baso % (Auto) (0.0-1.5) % Neut # (Auto) (1.4-5.7) K/uL Lymph # (Auto) (0.6-2.4) K/uL [facility] # (Auto) (0.0-0.8) K/uL Eos # (Auto) (0.0-0.7) K/uL Baso # (Auto) (0.0-0.1) K/uL Nucleated RBC % /100WBC Nucleated RBCs # K/uL Sodium (136-146) mmol/L Potassium (3.5-5.1) mmol/L Chloride (98-110) mmol/L Carbon Dioxide (21-31) mmol/L BUN (6.0-23.0) mg/dL Creatinine (0.6-1.5) mg/dL Est Cr Clr Drug Dosing mL/min Estimated GFR (MDRD) ml/min Glucose (60-110) mg/dL Calcium (8.8-10.8) mg/dL Total Bilirubin (0.1-1.5) mg/dL AST (5-40) IU/L ALT (8-54) IU/L Alkaline Phosphatase (40-150) Total Protein (6.0-8.0) g/dL Albumin (3.5-5.0) g/dL Globulin (2.0-3.5) g/dL Albumin/Globulin Ratio (1.3-2.8) Lipase (7-80) U/L Urine Color YELLOW Urine Appearance CLEAR Urine pH 6.0 (5.0-8.0) Ur Specific [place] 1.020 (1.001-1.035) Urine Protein NEGATIVE (NEGATIVE) mg/dL Urine Glucose (UA) NEGATIVE (NEGATIVE) mg/dL Urine Ketones NEGATIVE (NEGATIVE) mg/dL Urine Occult Blood NEGATIVE (NEGATIVE) Urine Nitrite NEGATIVE (NEGATIVE) Urine Bilirubin NEGATIVE (NEGATIVE) Urine Urobilinogen 0.2 (<2.0) EU/dL Ur Leukocyte Esterase NEGATIVE (NEGATIVE) Urine RBC 0-1 (0-2/HPF) Urine WBC 0-1 (0-5/HPF) Ur Epithelial Cells RARE (NONE-FEW) Urine Bacteria OCCASIONAL (NEGATIVE) Urine Opiates Screen (NEGATIVE) Ur Oxycodone Screen (NEGATIVE) Urine Methadone Screen (NEGATIVE) Ur Barbiturates Screen (NEGATIVE) Ur Phencyclidine Scrn (NEGATIVE) Ur Amphetamine Screen (NEGATIVE) U Methamphetamines Scrn (NEGATIVE) U Benzodiazepines Scrn (NEGATIVE) U Cocaine Metab Screen (NEGATIVE) U Marijuana (THC) Screen (NEGATIVE) Meds: Medications Discontinued Medications Generic Name Dose Route Start Last Admin Trade Name Sridevi PRN Reason Stop Dose Admin Diphenhydramine HCl 50 mg 12/21/16 11:06 12/21/16 11:22 Benadryl IVPUSH 12/21/16 11:07 50 mg ONETIME ONE Administration Sodium Chloride 1,000 mls @ 999 mls/hr 12/21/16 09:24 12/21/16 09:34 Normal Saline IV 12/21/16 10:24 999 mls/hr .Bolus ONE Administration Metoclopramide HCl 10 mg 12/21/16 11:06 12/21/16 11:21 Reglan IVPUSH 12/21/16 11:07 10 mg ONETIME ONE Administration Pantoprazole Sodium 80 mg 12/21/16 11:06 12/21/16 11:21 Protonix Iv IVPUSH 12/21/16 11:07 80 mg .BOLUS ONE Administration Departure - Departure Time of Disposition: 11:42 Disposition: Home, Self-Care 01 Condition: Good Clinical Impression: Abdominal pain Qualifiers: Abdominal location: generalized Qualified Code(s): R10.84 - Generalized abdominal pain - Discharge Information Referrals: PCP,None [Primary Care Provider] - Forms: ED Department Discharge Additional Instructions: The following information is given to patients seen in the emergency department who are being discharged to home. This information is to outline your options for follow-up care. We provide all patients seen in our emergency department with a follow-up referral. The need for follow-up, as well as the timing and circumstances, are variable depending upon the specifics of your emergency department visit. If you don't have a primary care physician on staff, we will provide you with a referral. We always advise you to contact your personal physician following an emergency department visit to inform them of the circumstance of the visit and for follow-up with them and/or the need for any referrals to a consulting specialist. The emergency department will also refer you to a specialist when appropriate. This referral assures that you have the opportunity for followup care with a specialist. All of these measure are taken in an effort to provide you with optimal care, which includes your followup. Under all circumstances we always encourage you to contact your private physician who remains a resource for coordinating your care. When calling for followup care, please make the office aware that this follow-up is from your recent emergency room visit. If for any reason you are refused follow-up, please contact the [facility] emergency department at and asked to speak to the emergency department charge nurse. [facility] Specialty Care - General Surgery Professional Building [address] [place] [address], [address] [place] [address] Protonix as prescribed Zofran as prescribed call schedule appointment with general surgery above return as needed as discussed follow-up with private medical doctor in 1-2 days - My Orders Last 24 Hours: My Active Orders 12/21/16 09:24 Abdomen Pelvis w Cont [CT] Stat - Assessment/Plan Last 24 Hours: My Active Orders 12/21/16 09:24 Abdomen Pelvis w Cont [CT] Stat
[2016-12-21 10:19] LABS: CHLORIDE,CL 111 mmol/L (98-110); SODIUM,NA 142 mmol/L (136-146)
[2016-12-21] MEDS ORDERED: Pantoprazole 80 MG in Sodium Chloride 0.9% 10 ML IVPUSH ONE (11:04)
[2016-12-21] MEDS ORDERED: diphenhydrAMINE 50 MG/ML SDV IVPUSH ONE (11:06)
[2016-12-21] MEDS ORDERED: Metoclopramide 10 MG/2 ML SDV IVPUSH ONE (11:06)
[2016-12-21] MEDS ORDERED: Pantoprazole 40 MG Vial IVPUSH ONE (11:06)
[2016-12-21 12:10] VITALS: BP 127/68
--- NOTE | 2016-12-22 15:11 | CT ---
EXAM DATE: 12/21/16 PATIENT'S AGE: 31 Patient: HARSHA GELLER Facility: [place], [place] : 1985 Study: CT Abdomen/Pelvis [id number] 11:10:10 AM Ordering Physician: JANA Final Report: INDICATION: Abdominal pain. Comparison: CT pelvis without and with intravenous contrast May 23, 2016. Technique: CT abdomen and pelvis with intravenous contrast; no oral contrast; coronal and sagittal reformats. Findings: No abnormal intra pulmonary nodular densities through the lung bases. No evidence of pleural effusion. Normal size cardiac silhouette without any evidence of pericardial effusion. No focal hepatic or splenic pathology. No pancreatic pathology. Gallbladder is unremarkable. No adrenal pathology. Symmetric perfusion of both the kidneys without any obstructive uropathy or perinephric pathology. No kidney stones. No retroperitoneal lymphadenopathy. No evidence of abdominal or pelvic ascites. Normal appendix. CT study of the pelvis is unremarkable. Impression: Negative CT of the abdomen and pelvis with intravenous contrast. Please note that all CT scans at this facility use dose modulation, iterative reconstruction, and/or weight-based dosing when appropriate to reduce radiation dose to as low as reasonably achievable. Dictated by Edmond Blue MD @ Dec 21 2016 11:18AM (Electronic Signature) Report Signed by Proxy. VIRI
== END 2016-12-21 12:05 | disposition home or self-care (01) ==
LOC: MW.ED 09:04
DX: R10.84 Generalized abdominal pain (principal)
CPT/HCPCS: 74177; 80053; 80305; 81001; 83690; 85025; 96361; 96374; 96375; 99284; C9113; J1200; J2765; J7040; 99283

== ENCOUNTER 2018-12-10 15:02 | Emergency (ER) | payer BC ==
--- NOTE | 2018-12-10 15:22 | EDM.PDOC ---
ED HPI GENERAL MEDICAL PROBLEM - General Chief Complaint: ENT Problem Stated Complaint: OBJECT IN THROAT Time Seen by Provider: 12/10/18 15:21 Source of Information: Reports: Patient History Limitations: Reports: No Limitations - History of Present Illness INITIAL COMMENTS - FREE TEXT/NARRATIVE: HISTORY AND PHYSICAL: History of present illness: Patient is a 33-year-old male presents to the ED with complaint of something stuck in his throat. He states 2 days he was drinking beer and used a field service poultry technician to open a bottle. He states the field service poultry technician broke and he thinks a piece went in to his beer and he subsequently swallowed. He did not have pain at the time but states he "had quite a lot of drinks" at that point. He reports pain in the throat since yesterday. He is able to swallow saliva, liquids and solids without difficulty. He denies difficulty breathing, chest pain, shortness of breath. Review of systems: As per history of present illness and below otherwise all systems reviewed and negative. Past medical history: As per history of present illness and as reviewed below otherwise noncontributory. Surgical history: As per history of present illness and as reviewed below otherwise noncontributory. Social history: No reported history of drug or alcohol abuse. Family history: As per history of present illness and as reviewed below otherwise noncontributory. Physical exam: General: Patient sitting comfortably in no acute distress and nontoxic appearing HEENT: Atraumatic, normocephalic, pupils reactive, negative for conjunctival pallor or scleral icterus, mucous membranes moist, throat clear, neck supple, nontender, trachea midline. No meningeal signs. Lungs: Clear to auscultation, breath sounds equal bilaterally, chest nontender. Heart: S1S2, regular, negative for clicks, rubs, or overt murmur. Abdomen: Soft, nondistended, nontender. Negative for masses or hepatosplenomegaly. Negative for costovertebral tenderness. No rigidity, rebound , guarding. Pelvis: Stable nontender. Genitourinary: Deferred. Rectal: Deferred. Extremities: Atraumatic, negative for cords or calf pain. Neurovascular unremarkable. Neuro: Awake, alert, oriented. Cranial nerves II through XII unremarkable. Cerebellum unremarkable. Motor and sensory unremarkable throughout. Exam nonfocal. Notes: Diagnostics: Rapid strep, influenza Therapeutics: [] Prescriptions: Impression: sore throat, esophageal irritation Plan: Follow up with Dr. Canchola, general surgery, on Thursday. Please call the number provided to schedule an appointment Return to ED as needed as discussed Definitive disposition and diagnosis as appropriate pending reevaluation and review of above. - Related Data Allergies Allergy/AdvReac Type Severity Reaction Status Date / Time cat dander Allergy Hives Verified 12/10/18 15:21 Home Meds: Home Meds . [No Known Home Meds] 12/08/14 [History] Past Medical History - Past Health History Medical/Surgical History: Denies Medical/Surgical History HEENT History: Reports: None Cardiovascular History: Reports: None Other Cardiovascular History: Heart murmur as a child Respiratory History: Reports: Bronchitis, Recurrent Gastrointestinal History: Reports: None Genitourinary History: Reports: None Musculoskeletal History: Reports: None Neurological History: Reports: None Psychiatric History: Reports: None Endocrine/Metabolic History: Reports: None Hematologic History: Reports: None Immunologic History: Reports: None Oncologic (Cancer) History: Reports: None Dermatologic History: Reports: None - Infectious Disease History Infectious Disease History: Reports: Chicken Pox - Past Surgical History Head Surgeries/Procedures: Reports: None HEENT Surgical History: Reports: None Cardiovascular Surgical History: Reports: None Respiratory Surgical History: Reports: None GI Surgical History: Reports: Other (See Below) Male Surgical History: Reports: None Endocrine Surgical History: Reports: None Neurological Surgical History: Reports: None Musculoskeletal Surgical History: Reports: None Oncologic Surgical History: Reports: None Dermatological Surgical History: Reports: None Social & Family History - Family History Family Medical History: Noncontributory Cardiac: Reports: Hypertension, [place] Neurological: Reports: CVA Endocrine/Metabolic: Reports: Diabetes, type II - Tobacco Use Smoking Status *Q: Current Every Day Smoker Years of Tobacco use: 1 Packs/Tins Daily: 15 - Caffeine Use Caffeine Use: Reports: Coffee, Energy Drinks, Soda, Tea - Recreational Drug Use Recreational Drug Use: No - Sexual History Sexual History: Reports: Sexually Active, Other (See Below) - Living Situation & Occupation Living situation: Reports: Single Occupation: Employed ED ROS ENT - Review of Systems Review Of Systems: ROS reveals no pertinent complaints other than HPI. ED EXAM, ENT - Physical Exam Exam: See Below (see dictation) Course - Vital Signs Last Recorded V/S: Last Vital Signs Temp Pulse 81 12/10/18 16:30 Resp 18 12/10/18 15:13 BP 111/70 12/10/18 16:30 Pulse Ox 97 12/10/18 16:30 Departure - Departure Time of Disposition: 16:18 Disposition: Home, Self-Care 01 Condition: Good Clinical Impression: Sore throat - Discharge Information Instructions: Sore Throat, [id number] Referrals: PCP,None [Primary Care Provider] - Forms: ED Department Discharge Additional Instructions: The following information is given to patients seen in the emergency department who are being discharged to home. This information is to outline your options for follow-up care. We provide all patients seen in our emergency department with a follow-up referral. The need for follow-up, as well as the timing and circumstances, are variable depending upon the specifics of your emergency department visit. If you don't have a primary care physician on staff, we will provide you with a referral. We always advise you to contact your personal physician following an emergency department visit to inform them of the circumstance of the visit and for follow-up with them and/or the need for any referrals to a consulting specialist. The emergency department will also refer you to a specialist when appropriate. This referral assures that you have the opportunity for follow-up care with a specialist. All of these measure are taken in an effort to provide you with optimal care, which includes your follow-up. Under all circumstances we always encourage you to contact your private physician who remains a resource for coordinating your care. When calling for follow-up care, please make the office aware that this follow-up is from your recent emergency room visit. If for any reason you are refused follow-up, please contact the [facility] Emergency Department at and asked to speak to the emergency department charge nurse. [facility] [address] [place] [id number] [facility] [address] [place] [id number] [facility] Specialty Care - General Surgery Professional Building [address], [address] [place] [address] Canchola, general surgery, on Thursday. Please call the number provided to schedule an appointment Return to ED as needed as discussed
--- NOTE | 2018-12-10 15:56 | CR ---
Soft tissue neck: AP and lateral views of the neck were obtained. Slight scoliosis is noted. Cervical spine is otherwise unremarkable. Prevertebral soft tissues are normal. Epiglottis is normal. No radiopaque foreign object is seen. Impression: 1. Slight scoliosis. 2. Two view soft tissue neck study is otherwise unremarkable. 3. No definite radiopaque foreign object is seen. Diagnostic code #2 MTDD
--- NOTE | 2018-12-10 16:11 | CR ---
Chest: Two views of the chest were obtained. Comparison: No previous study. Heart size and mediastinum are normal. Lungs are clear. Bony structures are unremarkable. No radiopaque foreign object is seen. Impression: Nothing acute is seen on two-view chest x-ray. Diagnostic code #1 MTDD
[2018-12-10 16:31] VITALS: BP 111/70; PULSE 81
== END 2018-12-10 16:32 | disposition home or self-care (01) ==
LOC: MW.ED 15:02
DX: J02.9 Acute pharyngitis, unspecified (principal); K22.8 Other specified diseases of esophagus; F17.210 Nicotine dependence, cigarettes, uncomplicated; Z91.09 Other allergy status, other than to drugs and biological substances
CPT/HCPCS: 70360; 70360-26; 71046; 71046-26; 99283-25

== ENCOUNTER 2024-03-04 12:58 | Emergency (ER) | payer BC ==
[2024-03-04] MEDS: Cyclobenzaprine 5 MG Tab PO STA (14:37)
[2024-03-04] MEDS: Diazepam 2 MG Tab PO ONE (14:37)
[2024-03-04] MEDS: Acetaminophen/oxyCODONE 325-5 MG Tab PO ONE (16:10)
[2024-03-04 16:31] LABS: BASOPHILS ABSOLUTE AUTO 0.13 K/uL (0.00-0.20); BASOPHILS PERCENT AUTO 0.9 % (0.0-1.0); EOSINOPHILS ABSOLUTE AUTO 0.18 K/uL (0.00-0.45); EOSINOPHILS PERCENT AUTO 1.2 % (0.0-6.0); HEMATOCRIT 41.8 % (42.0-52.0); HEMOGLOBIN 14.2 g/dL (14.0-18.0); IMMATURE GRAN ABSOLUTE AUTO 0.06 K/uL (0.00-0.05); IMMATURE GRAN PERCENT AUTO 0.4 % (0.0-0.4); LYMPHOCYTES ABSOLUTE AUTO 2.11 K/uL (1.00-4.80); LYMPHOCYTES PERCENT AUTO 14.1 % (24.0-44.0); MEAN CORPUSCULAR VOLUME 85.5 fL (83.0-99.0); MEAN PLATELET VOLUME 9.7 fL (9.4-12.4); MONOCYTES ABSOLUTE AUTO 0.81 K/uL (0.00-0.80); MONOCYTES PERCENT AUTO 5.4 % (0.0-8.0); NEUTROPHILS ABSOLUTE AUTO 11.68 K/uL (1.80-7.70); PLATELET COUNT,PLT 319 K/uL (150-400); RED BLOOD CELL COUNT 4.89 M/uL (4.52-5.90); WHITE BLOOD CELL COUNT,WBC 14.97 K/uL (3.9-11.3)
[2024-03-04 16:59] LABS: A/G RATIO 1.2 (0.9-1.6); ALBUMIN 4.5 g/dL (3.4-5.0); BILIRUBIN TOTAL 0.3 mg/dL (0.2-1.0); CALCIUM 9.7 mg/dL (8.5-10.1); CARBON DIOXIDE,CO2 22.9 mmol/L (21.0-32.0); CREATININE 0.9 mg/dL (0.8-1.3); EST CRCL DRUG DOSING (CG) 95.44 mL/min; POTASSIUM,K 4.2 mmol/L (3.5-5.1); PROTEIN TOTAL,TP 8.2 g/dL (6.4-8.2)
[2024-03-04] MEDS: HYDROmorphone 1 MG/ML Syringe IVPUSH ONE (17:59)
[2024-03-04] MEDS: Iopamidol 755 MG/ML 500 ML Multipack Bottle IVPUSH STA (19:45)
[2024-03-04] MEDS: Lidocaine 4% 1 each Patch TOP ONE (20:25)
[2024-03-04] MEDS: Diazepam 5 MG Tab PO ONE (20:46)
[2024-03-04 20:55] VITALS: BP 136/95; PULSE 73
== END 2024-03-04 20:55 | disposition home or self-care (01) ==
LOC: MW.ED 12:58
DX: M43.6 Torticollis (principal); Z91.048 Other nonmedicinal substance allergy status; Z79.899 Other long term (current) drug therapy
CPT/HCPCS: 36415; 70498; 72040; 80053; 85025; 87651; 96374; 99284; A9270; J1171; Q9967